=== PATIENT | male | born 1940 | race Caucasian/White ===

== ENCOUNTER → 2017-08-01 | Outpatient (CLI) | payer MEDICARE ==
[~2017-08-01] MED LIST: AMLO10; ASPI325 PO; BENAML20/5 PO; DOCU100 PO; EZET10-20 PO; FERR325 PO; LISI5 PO; METF500 PO; METO50 PO; OXYACE5T PO; ROSU10TA PO; WARF2 PO; WARF6 PO
== END ==
LOC: PLD 11:08 → LAB SHORT 11:08
DX: D48.5 Neoplasm of uncertain behavior of skin (principal)
CPT/HCPCS: 88305

== ENCOUNTER → 2017-09-05 | Outpatient (CLI) | payer MEDICARE | END | disposition home or self-care (01) | LOC: LAB SHORT 07:20 → PLD 07:20 | DX: C44.612 Basal cell carcinoma of skin of right upper limb, including shoulder (principal) | CPT/HCPCS: 88305 ==

== ENCOUNTER 2018-01-14 16:39 | Observation (INO) | payer OTHER, MEDICARE ==
[~2018-01-14] VITALS: Ht 167.6 cm; Wt 66.1 kg
[~2018-01-14 16:39] MED LIST changes: -AMLO10; +AMLO10 PO
[2018-01-14 17:29] LABS: BASOPHILS ABSOLUTE AUTO 0.12 K/mm3 (0.00-0.23); BASOPHILS PERCENT AUTO 1 % (0-2); EOSINOPHILS ABSOLUTE AUTO 0.41 K/mm3 (0.00-0.68); EOSINOPHILS PERCENT AUTO 5 % (0-6); Hematocrit 39.4 % (37.0-53.0); Hemoglobin 13.8 g/dL (13.5-17.5); IMMATURE GRAN ABSOLUTE AUTO 0.04 K/mm3 (0.00-0.10); IMMATURE GRAN PERCENT AUTO 0 % (0-1); LYMPHOCYTES ABSOLUTE AUTO 2.42 K/mm3 (0.84-5.20); LYMPHOCYTES PERCENT AUTO 26 % (21-46); MONOCYTES ABSOLUTE AUTO 1.65 K/mm3 (0.16-1.47); MONOCYTES PERCENT AUTO 18 % (4-13); Mean Corpuscular HGB 34.1 pg (26.0-34.0); Mean Corpuscular Volume 97 fL (80-100); Mean Platelet Volume 8.9 fL (9.1-12.4); NEUTROPHILS ABSOLUTE AUTO 4.52 K/mm3 (1.96-9.15); NEUTROPHILS PERCENT AUTO 49 % (41-73); Platelet Count 257 K/mm3 (150-400); RDW Coefficient Variation 12.3 % (11.7-14.2); RDW Standard Deviation 44.2 fL (35.1-46.3); Red Blood Cell Count 4.05 M/mm3 (4.30-5.90); White Blood Cell Count 9.16 K/mm3 (4.00-11.30)
[2018-01-14 17:55] LABS: Troponin I <0.015 ng/mL (0.000-0.040)
[2018-01-14 18:00] LABS: Alanine Aminotransfer (ALT/SGP 15 U/L (12-78); Albumin, Blood 3.4 g/dL (3.4-5.0); Albumin/Globulin Ratio 0.8 (0.8-1.8); Alk Phos 56 U/L (50-136); Anion Gap 13 mmol/L (6-16); Aspartate Aminotrans (AST/SGOT 20 U/L (12-37); Bilirubin, Total 0.4 mg/dL (0.1-1.0); Blood Urea Nitrogen 11 mg/dL (8-24); Bun/Creatinine Ratio 10.6 (12.0-20.0); CO2, Blood 21 mmol/L (21-32); Calcium, Blood 8.7 mg/dL (8.5-10.1); Chloride, Blood 95 mmol/L (98-108); Creatinine, Blood 1.04 mg/dL (0.60-1.20); Globulin, Blood 4.3 g/dL (2.2-4.0); Glomerular Filtration Rate >60 (60-); Glucose, Blood 99 mg/dL (70-99); Sodium, Blood 129 mmol/L (136-145); Total Protein, Blood 7.7 g/dL (6.4-8.2)
[2018-01-14] MEDS ORDERED: Plavix75 MG PO (18:52)
[2018-01-14 19:48] LABS: Source, Urine Clean Catch
[2018-01-14 19:52] LABS: Bilirubin, Urine Neg (Neg); Blood, Urine Neg (Neg); Glucose Qualitative, Urine Neg (Neg); Ketones, Urine Neg (Neg); Leukocyte Esterase, Urine Neg (Neg); Nitrite, Urine Neg (Neg); Protein, Urine Neg (Neg); Urobilinogen, Urine NORM (Normal)
[2018-01-14 20:02] LABS: Appearance, Urine Clear (Clear)
[2018-01-14 20:03] LABS: Color, Urine Pale Yellow (P-Yellow)
[2018-01-14 21:05] LABS: U Amphetamine Screen Not Detected; U Barbituate Screen Not Detected; U Benzodiazapine Screen Not Detected; U Buprenorphine Screen Not Detected; U Cannabinoids Screen Not Detected; U Cocaine Screen Not Detected; U Methadone Screen Not Detected; U Methamphetamine Screen Not Detected; U Opiates Screen Not Detected; U Oxycodone Screen Not Detected; U Phencyclidine Screen Not Detected; U Propoxyphene Screen Not Detected
[2018-01-14] MEDS ORDERED: CHOL10002 PO (22:28)
[2018-01-15 04:51] LABS: BASOPHILS ABSOLUTE AUTO 0.12 K/mm3 (0.00-0.23); BASOPHILS PERCENT AUTO 2 % (0-2); EOSINOPHILS ABSOLUTE AUTO 0.48 K/mm3 (0.00-0.68); EOSINOPHILS PERCENT AUTO 6 % (0-6); Hemoglobin 12.9 g/dL (13.5-17.5); IMMATURE GRAN ABSOLUTE AUTO 0.02 K/mm3 (0.00-0.10); IMMATURE GRAN PERCENT AUTO 0 % (0-1); LYMPHOCYTES ABSOLUTE AUTO 2.14 K/mm3 (0.84-5.20); LYMPHOCYTES PERCENT AUTO 26 % (21-46); MONOCYTES PERCENT AUTO 20 % (4-13); Mean Corpuscular HGB Conc 33.9 g/dL (31.5-36.5); Mean Corpuscular Volume 97 fL (80-100); NEUTROPHILS ABSOLUTE AUTO 3.78 K/mm3 (1.96-9.15); NEUTROPHILS PERCENT AUTO 46 % (41-73); Platelet Count 245 K/mm3 (150-400); RDW Coefficient Variation 12.5 % (11.7-14.2); RDW Standard Deviation 44.4 fL (35.1-46.3); Red Blood Cell Count 3.91 M/mm3 (4.30-5.90); White Blood Cell Count 8.14 K/mm3 (4.00-11.30)
[2018-01-15 05:10] LABS: Anion Gap 9 mmol/L (6-16); Blood Urea Nitrogen 10 mg/dL (8-24); Bun/Creatinine Ratio 9.7 (12.0-20.0); CO2, Blood 24 mmol/L (21-32); Calcium, Blood 8.4 mg/dL (8.5-10.1); Chloride, Blood 102 mmol/L (98-108); Creatinine, Blood 1.03 mg/dL (0.60-1.20); Glomerular Filtration Rate >60 (60-); Glucose, Blood 91 mg/dL (70-99); Potassium, Blood 4.1 mmol/L (3.5-5.5); Sodium, Blood 135 mmol/L (136-145)
== END 2018-01-15 14:52 | disposition home or self-care (01) ==
LOC: ER 16:39 → MEDS 16:40 → ENPENDDIS 01-15 12:45 → MEDS 01-15 14:52
PROVIDERS: Emergency Medicine; Nurse Practitioner Acute Care
DX: I95.1 Orthostatic hypotension (principal); E87.1 Hypo-osmolality and hyponatremia; J18.8 Other pneumonia, unspecified organism; E78.5 Hyperlipidemia, unspecified; N40.0 Benign prostatic hyperplasia without lower urinary tract symptoms; E11.22 Type 2 diabetes mellitus with diabetic chronic kidney disease; I12.9 Hypertensive chronic kidney disease with stage 1 through stage 4 chronic kidney disease, or unspecified chronic kidney disease; N18.2 Chronic kidney disease, stage 2 (mild); Z79.01 Long term (current) use of anticoagulants; Z85.828 Personal history of other malignant neoplasm of skin; Z86.73 Personal history of transient ischemic attack (TIA), and cerebral infarction without residual deficits; Z79.899 Other long term (current) drug therapy; Z79.02 Long term (current) use of antithrombotics/antiplatelets; Z88.0 Allergy status to penicillin; Z87.891 Personal history of nicotine dependence; Z86.79 Personal history of other diseases of the circulatory system
CPT/HCPCS: 36415; 70450; 71046; 71260; 80048; 80053; 81003; 82947; 83605; 83735; 83880; 84145; 84484; 85025; 85379; 87040; 87449; 90686; 93005; 93010; 93306; 99285-25; G0008; G0378; J7030; Q9967

== ENCOUNTER → 2018-07-08 | Outpatient (CLI) | payer MEDICARE ==
[~2018-07-08] MED LIST changes: +CHOL10002 PO; +Plavix75 MG PO
== END | disposition home or self-care (01) ==
LOC: LAB EV 14:25 → LAB SHORT 14:25
DX: E11.22 Type 2 diabetes mellitus with diabetic chronic kidney disease (principal)
CPT/HCPCS: 82043

== ENCOUNTER 2020-07-28 17:25 | Inpatient (IN) | payer OTHER, MEDICARE ==
[~2020-07-28] VITALS: Ht 167.6 cm; Wt 68.2 kg
[~2020-07-28 17:25] MED LIST changes: -CHOL10002 PO; -LISI5 PO; -Plavix75 MG PO; -ROSU10TA PO
[2020-07-28] MEDS ORDERED: Ventolin/Prove6.7 GM INH (18:05)
[2020-07-28] MEDS ORDERED: ONDA8 PO (18:05)
[2020-07-28] MEDS ORDERED: Crestor40 MG PO (18:06)
[2020-07-28] MEDS ORDERED: Plavix75 MG PO (18:07)
[2020-07-28] MEDS ORDERED: Lisinopril2.5 MG PO (18:07)
[2020-07-28 18:14] LABS: Hematocrit 34.7 % (37.0-53.0); Hemoglobin 12.3 g/dL (13.5-17.5); Mean Corpuscular HGB 34.3 pg (26.0-34.0); Mean Corpuscular HGB Conc 35.4 g/dL (31.5-36.5); Mean Corpuscular Volume 97 fL (80-100); Mean Platelet Volume 10.6 fL (9.1-12.4); RDW Coefficient Variation 11.7 % (11.7-14.2); RDW Standard Deviation 41.5 fL (35.1-46.3); Red Blood Cell Count 3.59 M/mm3 (4.30-5.90)
[2020-07-28 18:33] LABS: White Blood Cell Count 0.76 K/mm3 (4.00-11.30)
[2020-07-28 18:34] LABS: Platelet Count 18 K/mm3 (150-400)
[2020-07-28] MEDS ORDERED: VITAMIN D325 MC3 PO (18:38)
[2020-07-28 18:41] LABS: BAND PERCENT MAN 2 % (0-8); BASOPHILS ABSOLUTE MAN 0.01 K/mm3 (0.00-0.23); BASOPHILS PERCENT MAN 2 % (0-2); EOSINOPHILS ABSOLUTE MAN 0.04 K/mm3 (0.00-0.68); EOSINOPHILS PERCENT MAN 6 % (0-6); LYMPHOCYTES ABSOLUTE MAN 0.51 K/mm3 (0.84-5.20); LYMPHOCYTES PERCENT MAN 68 % (21-46); MONOCYTES PERCENT MAN 14 % (4-13); NEUTROPHILS ABSOLUTE MAN 0.07 K/mm3 (1.96-9.15); SEG NEUTROPHILS PERCENT MAN 8 % (41-73); TOTAL CELLS COUNTED 50
[2020-07-28 18:52] LABS: Albumin, Blood 2.5 g/dL (3.4-5.0); Albumin/Globulin Ratio 0.6 (0.8-1.8); Bilirubin, Total 0.4 mg/dL (0.1-1.0); Bun/Creatinine Ratio 23.7 (12.0-20.0); Calcium, Blood 9.1 mg/dL (8.5-10.1); Creatinine, Blood 1.94 mg/dL (0.60-1.20); Globulin, Blood 4.3 g/dL (2.2-4.0); Potassium, Blood 3.6 mmol/L (3.5-5.5); Total Protein, Blood 6.8 g/dL (6.4-8.2)
[2020-07-28 20:01] LABS: Influenza A, PCR NEGATIVE (NEGATIVE); Influenza B, PCR NEGATIVE (NEGATIVE); Resp Syncytial Virus, PCR NEGATIVE (NEGATIVE); SARS-Cov-2 (COVID-19) PCR, MMC NEGATIVE (NEGATIVE)
[2020-07-29 04:10] LABS: Hematocrit 33.7 % (37.0-53.0); Hemoglobin 11.6 g/dL (13.5-17.5); Mean Corpuscular HGB 33.9 pg (26.0-34.0); Mean Corpuscular HGB Conc 34.4 g/dL (31.5-36.5); Mean Corpuscular Volume 99 fL (80-100); Mean Platelet Volume 11.4 fL (9.1-12.4); RDW Coefficient Variation 11.8 % (11.7-14.2); RDW Standard Deviation 42.8 fL (35.1-46.3); Red Blood Cell Count 3.42 M/mm3 (4.30-5.90)
[2020-07-29 04:24] LABS: Platelet Count 15 K/mm3 (150-400)
[2020-07-29 04:25] LABS: White Blood Cell Count 0.98 K/mm3 (4.00-11.30)
[2020-07-29 04:27] LABS: Bun/Creatinine Ratio 21.8 (12.0-20.0); Calcium, Blood 8.4 mg/dL (8.5-10.1); Creatinine, Blood 1.79 mg/dL (0.60-1.20); Potassium, Blood 3.4 mmol/L (3.5-5.5)
--- NOTE | 2020-07-29 05:04 | NUR ---
SHIFT SUMMARY PT RESTED WELL THROUGH NIGHT AFTER BEING ADMITTED FROM ED. ALERT AND ORIENTED - BUT MAY HAVE SOME INTERMITTENT CONFUSION. ABLE TO MAKE NEEDS KNOWN. SATS >90% ON ROOM AIR - DOES CLEAR THROAT OFTEN, SAYS THAT IS NORMAL FOR HIM. TELE READING NSR. NO C/O CHEST PAIN AT THIS TIME. VOIDS TO URINAL, ADEQUATE UOP. NO BM. NO C/O PAIN. VSS. AFEBRILE UPON ARRIVAL. CALL LIGHT WITHIN REACH, BED IN LOWEST POSITION. WILL CONTINUE TO MONITOR.
[2020-07-29 05:36] LABS: BAND PERCENT MAN 4 % (0-8); BASOPHILS ABSOLUTE MAN 0.03 K/mm3 (0.00-0.23); BASOPHILS PERCENT MAN 4 % (0-2); EOSINOPHILS ABSOLUTE MAN 0.07 K/mm3 (0.00-0.68); EOSINOPHILS PERCENT MAN 8 % (0-6); LYMPHOCYTES ABSOLUTE MAN 0.74 K/mm3 (0.84-5.20); LYMPHOCYTES PERCENT MAN 76 % (21-46); MONOCYTES ABSOLUTE MAN 0.03 K/mm3 (0.16-1.47); MONOCYTES PERCENT MAN 4 % (4-13); NEUTROPHILS ABSOLUTE MAN 0.07 K/mm3 (1.96-9.15); SEG NEUTROPHILS PERCENT MAN 4 % (41-73); TOTAL CELLS COUNTED 25
--- NOTE | 2020-07-29 07:46 | NUR ---
Pt states that his girlfriend was the one who thought that he was having more trouble breathing than usual(pt states he usually has difficulty at baseline, due to pulmonary fibrosis) and wanted him to come to the hospital. Pt has tachypnea (20 breaths /min at rest), clear lung sounds save for the right lower lobe, which is diminished and has fine inspiratory crackles noted, but no use of accessory muscles and he is speaking in full sentences, no supplemental oxygen needed at this time. Sitting up eating breakfast at this time. Denies pain.
--- NOTE | 2020-07-29 10:59 | NUR ---
PT is asking when he can go home. States that he feels like his breathing is back to his baseline, and that it was his girlfriend who thought that he needed to go to the hospital yesterday.
--- NOTE | 2020-07-29 12:13 | NUR ---
Dr. Soria was here, rounding on the patient. Discussed plan of care for he patient, and consultation to Dr. Salvador was called into the corporate trust officer at this time. She stats the oncologist is not in the office, but that she will notify him by text message. Telemetry discontinued per orders.
--- NOTE | 2020-07-29 13:51 | NUR ---
ADMIT: 07/28/20 DISCHARGE: DX: Neutropenia,Febrile CC:kwilcox DANIKA CALL: RESIDENCE: Home CAREGIVER: DMITRY ARMSTRONG (CHILD) DX: HTN, CAD, CKD-stage 2, DM-type 2, PVD, see list DME: None CCM: Referral- 2019 HOME HEALTH: None SUMMARY: 07/28/20 07/29/20- pt was admitted for Fever and increase SOB. Dr. Soria has seen pt and consulted with Oncologist. There is some question of what his baseline is. He is having some confusion. No plan to d/c pt at this time. -jesus
--- NOTE | 2020-07-29 18:01 | NUR ---
summary Uneventful day, the pt has said that he feels much better, not having the breathing difficulties which brought him to the hospital in the first place. He has said that he would like to go home. Low grade fever noted today, asymptomatic hypotension. Appetite is fair, voiding using urinal, and did walk into bathroom once today with stand by assistance. Denies pain. Oncology consultation was called into the office, and I do not see a consultation note but the pt states that Dr. Salvador did come by to see him.
--- NOTE | 2020-07-29 20:45 | NUR ---
ASSUMED CARE PT IS SLEEPING IN ROOM. DENIES PAIN OR SOB. VITALS ARE STABLE AND IS ON ROOM AIR WITH SATS OF 98%. USING URINAL TO VOID AND UP WITH SBA TO BATHROOM. WILL CONTINUE TO MONITOR.
[2020-07-30 03:46] LABS: BASOPHILS ABSOLUTE AUTO 0.02 K/mm3 (0.00-0.23); BASOPHILS PERCENT AUTO 1 % (0-2); Hematocrit 31.7 % (37.0-53.0); Hemoglobin 10.9 g/dL (13.5-17.5); Mean Corpuscular HGB 33.9 pg (26.0-34.0); Mean Corpuscular HGB Conc 34.4 g/dL (31.5-36.5); Mean Corpuscular Volume 98 fL (80-100); RDW Coefficient Variation 11.6 % (11.7-14.2); RDW Standard Deviation 42.5 fL (35.1-46.3); Red Blood Cell Count 3.22 M/mm3 (4.30-5.90); White Blood Cell Count 1.72 K/mm3 (4.00-11.30)
[2020-07-30 03:47] LABS: EOSINOPHILS PERCENT AUTO 6 % (0-6); IMMATURE GRAN PERCENT AUTO 12 % (0-1); LYMPHOCYTES ABSOLUTE AUTO 0.87 K/mm3 (0.84-5.20); LYMPHOCYTES PERCENT AUTO 51 % (21-46); MONOCYTES ABSOLUTE AUTO 0.15 K/mm3 (0.16-1.47); MONOCYTES PERCENT AUTO 9 % (4-13); NEUTROPHILS ABSOLUTE AUTO 0.38 K/mm3 (1.96-9.15); NEUTROPHILS PERCENT AUTO 22 % (41-73)
[2020-07-30 03:49] LABS: Platelet Count 18 K/mm3 (150-400)
[2020-07-30 04:05] LABS: BAND PERCENT MAN 8 % (0-8); BASOPHILS ABSOLUTE MAN 0.03 K/mm3 (0.00-0.23); BASOPHILS PERCENT MAN 2 % (0-2); EOSINOPHILS ABSOLUTE MAN 0.13 K/mm3 (0.00-0.68); EOSINOPHILS PERCENT MAN 8 % (0-6); LYMPHOCYTES ABSOLUTE MAN 0.92 K/mm3 (0.84-5.20); LYMPHOCYTES PERCENT MAN 54 % (21-46); METAMYELOCYTE ABSOLUTE MAN 0.01 K/mm3 (0.00-0.00); METAMYELOCYTE PERCENT MAN 1 % (0-0); MONOCYTES ABSOLUTE MAN 0.13 K/mm3 (0.16-1.47); MONOCYTES PERCENT MAN 8 % (4-13); NEUTROPHILS ABSOLUTE MAN 0.46 K/mm3 (1.96-9.15); SEG NEUTROPHILS PERCENT MAN 19 % (41-73); TOTAL CELLS COUNTED 100
[2020-07-30 04:06] LABS: Albumin, Blood 1.8 g/dL (3.4-5.0); Anion Gap 5 mmol/L (6-16); Blood Urea Nitrogen 33 mg/dL (8-24); Bun/Creatinine Ratio 18.3 (12.0-20.0); CO2, Blood 28 mmol/L (21-32); CPK Creatine Kinase 26 U/L (39-308); Calcium, Blood 8.1 mg/dL (8.5-10.1); Chloride, Blood 105 mmol/L (98-108); Glomerular Filtration Rate 39 (60-); Glucose, Blood 97 mg/dL (70-99); Magnesium, Blood 1.7 mg/dL (1.6-2.4); Phosphorus, Blood 2.3 mg/dL (2.5-4.9); Potassium, Blood 3.2 mmol/L (3.5-5.5); Sodium, Blood 138 mmol/L (136-145)
[2020-07-30 04:07] LABS: Creatine Kinase MB <1.0 ng/mL (0.0-3.6); Creatine Kinase MB Index Unable to Calculate (0.0-4.0)
--- NOTE | 2020-07-30 06:26 | NUR ---
SHIFT SUMMARY PT IS ALERT AND ORIENTED. THERE HAVE BEEN NO CONFUSION NOTED DURING SHIFT. VITALS HAVE BEEN STABLE WITH NO ACUTE CHANGES. PT IS ON ROOM AIR WITH SATS OF >92%. PT SLEP THROUGHT THE NIGHT WITH MINIMAL INTERUPTIONS. PT USES URINAL AT BESIDE WHILE DANGLING AND IS ABLE TO AMBULATE TO BATHROOM WHEN NEEDED. PT DENIES CHEST PAIN OR SOB. CRITICAL LAB VALUE REPORTED IN MORNING LABS OF PLT COUNTOF 18 WHICH ARE TRENDING EXPECTED.
--- NOTE | 2020-07-30 13:14 | NUR ---
SPIRITUAL CARE PT IS VERY QUIET AND APPEARS ALMOST FLAT AND WITHDRAWN IF NOT WANTING TO PARTICIPATE IN CONVERSATION. PT SEEMS TO NEED SOME EMOTIONAL AND SPIRITUAL SUPPORT IN REGARDS TO HIS ILLNESS AND CURRENT HEALTH STATUS. 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 PT PRAYED WITH SPIRITUAL CARE BUT WAS UNINTERESTED IN A FURTHER CONVERSATION AT THIS TIME.
--- NOTE | 2020-07-30 13:39 | NUR ---
Spiritual care note: Called in to provide ministry and prayer to Kamari. He was alone in room and seemed withdrawn-difficult to engage. I spoke softly to him, offereing prayer. He allowed me to pray but then said he was tired. I will remain available.
--- NOTE | 2020-07-30 16:14 | NUR ---
TRANSFER TO MEDICAL FLOOR PT TRANSFERRED TO MEDICAL FLOOR AT APPROXIMATELY 1609 VIA WHEELCHAIR ACCOMPANIED BY SARBJIT CERRATO. REPORT GIVEN TO SHONNA STONE ON MEDICAL FLOOR FOR ROOM 341. PT TRANSFERRED WITH LR WITH KCL ADDED, PERSONAL BELONGINGS AND CHART. VS STABLE, PT ON RA UPON TRANSFER
--- NOTE | 2020-07-30 17:07 | NUR ---
TRANSFER NOTE- PT TRANSFERED TO MEDICAL FLOOR FROM PCU. PER REPORT FROM RESIDENTIAL PROPERTY CONSULTANT PT SEEMS WITHDRAWN HOWEVER SHE SPOKE TO HIS FAMILY AND THE PT HAS ALWAYS BEEN VERY QUIET. THIS IS HIS BASELINE. PT ALERT AND ORIENTED 1P ASSIST TO THE BATHROOM FOR LINES AND TUBES.
--- NOTE | 2020-07-30 18:23 | NUR ---
SHIFT SUMMARY- PT ALERT AND ORIENTED 1P ASSIST TO THE BATHROOM FOR LINES AND TUBES. PT IN BED WITH THE CALL LIGHT IN REACH CALLS APPROPRIATELY. DOOR CLOSED FOR NEUTROPENIC PRECAUTIONS. PLAN IS FOR PT TO DC HOME TOMORROW IF CURRENT TREND CONTINUES.
--- NOTE | 2020-07-30 21:50 | NUR ---
SPOKE TO PHARMACIST ABOUT RUNNING CEFEPIME WITH LR THAT HAS 20KCL. STATED WOULD BE OK TO RUN ABX PIGGYBACK WITH THOSE FLUIDS.
[2020-07-31 01:02] LABS: BASOPHILS ABSOLUTE AUTO 0.05 K/mm3 (0.00-0.23); BASOPHILS PERCENT AUTO 1 % (0-2); Hematocrit 31.8 % (37.0-53.0); Mean Corpuscular HGB 33.7 pg (26.0-34.0); Mean Corpuscular HGB Conc 34.6 g/dL (31.5-36.5); Mean Corpuscular Volume 98 fL (80-100); RDW Coefficient Variation 11.8 % (11.7-14.2); RDW Standard Deviation 42.2 fL (35.1-46.3); Red Blood Cell Count 3.26 M/mm3 (4.30-5.90); White Blood Cell Count 3.46 K/mm3 (4.00-11.30)
[2020-07-31 01:06] LABS: EOSINOPHILS ABSOLUTE AUTO 0.09 K/mm3 (0.00-0.68); EOSINOPHILS PERCENT AUTO 3 % (0-6); IMMATURE GRAN ABSOLUTE AUTO 0.21 K/mm3 (0.00-0.10); IMMATURE GRAN PERCENT AUTO 6 % (0-1); LYMPHOCYTES ABSOLUTE AUTO 1.19 K/mm3 (0.84-5.20); LYMPHOCYTES PERCENT AUTO 34 % (21-46); MONOCYTES ABSOLUTE AUTO 0.31 K/mm3 (0.16-1.47); MONOCYTES PERCENT AUTO 9 % (4-13); NEUTROPHILS ABSOLUTE AUTO 1.61 K/mm3 (1.96-9.15); NEUTROPHILS PERCENT AUTO 47 % (41-73)
[2020-07-31 01:07] LABS: Platelet Count 27 K/mm3 (150-400)
[2020-07-31 01:18] LABS: Albumin, Blood 1.7 g/dL (3.4-5.0); Anion Gap 6 mmol/L (6-16); Blood Urea Nitrogen 27 mg/dL (8-24); Bun/Creatinine Ratio 18.4 (12.0-20.0); CO2, Blood 26 mmol/L (21-32); Calcium, Blood 8.1 mg/dL (8.5-10.1); Chloride, Blood 106 mmol/L (98-108); Creatinine, Blood 1.47 mg/dL (0.60-1.20); Glomerular Filtration Rate 49 (60-); Glucose, Blood 102 mg/dL (70-99); Potassium, Blood 3.3 mmol/L (3.5-5.5); Sodium, Blood 138 mmol/L (136-145)
[2020-07-31 01:39] LABS: BAND PERCENT MAN 8 % (0-8); BASOPHILS PERCENT MAN 0 % (0-2); EOSINOPHILS ABSOLUTE MAN 0.27 K/mm3 (0.00-0.68); EOSINOPHILS PERCENT MAN 8 % (0-6); LYMPHOCYTES ABSOLUTE MAN 1.31 K/mm3 (0.84-5.20); LYMPHOCYTES PERCENT MAN 38 % (21-46); METAMYELOCYTE ABSOLUTE MAN 0.06 K/mm3 (0.00-0.00); METAMYELOCYTE PERCENT MAN 2 % (0-0); MONOCYTES PERCENT MAN 6 % (4-13); MYELOCYTE ABSOLUTE MAN 0.03 K/mm3 (0.00-0.00); MYELOCYTE PERCENT MAN 1 % (0-0); NEUTROPHILS ABSOLUTE MAN 1.55 K/mm3 (1.96-9.15); SEG NEUTROPHILS PERCENT MAN 37 % (41-73); TOTAL CELLS COUNTED 100
--- NOTE | 2020-07-31 04:49 | NUR ---
SHIFT SUMMARY A/O, ABLE TO MAKE NEEDS KNOWN. COOPERATIVE WITH CARE. CALLS AND ANSWERS QUESTIONS APPROPRIATELY. NO C/O PAIN/DISCOMFORT. DOES STATE SOB, NOTABLY TACHYPNEIC; HOWEVER, STATES CONTINUOUS SITUATION FOR HIM HE HAS PULMONARY FIBROSIS. DOES NOT UTILIZE BREATHING TREATMENTS. SPO2 >92% ON RA. NEW 20G IV PLACED TO RFA; CONTINUES TO INFUSE LR /c KCL @ 100 ML/HR. INDEPENDENT WITH URINAL AT BEDSIDE. 1P ASSIST TO BATHROOM IF NEEDED R/T IV POLE/TUBING. NO ACUTE CHANGES NOTED OVERNIGHT. APPEARED TO REST WELL. BED REMAINED IN LOWEST POSITION. CALL LIGHT AND BELONGINGS WITHIN REACH. CONTINUE WITH CURRENT PLAN OF CARE. REPORT TO ONCOMING RN.
--- NOTE | 2020-07-31 07:20 | NUR ---
ASSUMED CARE OF PT- BEDSIDE REPORT COMPLETED WITH NIGHT RN THAI. PT ALERT AND ORIENTED AWAKE AT THE TIME OF SHIFT CHANGE. PER REPORT HE DID NOT SLEEP VERY WELL. IV WAS LEAKING AND BLEEDING IN THE NIGHT AND WAS CHANGED. NEW IV INFUSING AT THIS TIME NO BLEEDING OR LEAKING NOTED WILL CTM. PT SEEMS TO BE IN GOOD SPIRITS AND IS HOPEFULL TO GO HOME TODAY.
[2020-07-31] MEDS ORDERED: LEVFLO500 PO (10:36)
--- NOTE | 2020-07-31 12:11 | NUR ---
DISCHARGE NOTE- PT WAS GIVEN VERBAL AND WRITTEN DISCHARGE INSTRUCTIONS AND ACKNOWLEDGED UNDERSTANDING OF THEM. IV DC'D PRIOR TO DISCHARGE. PT ESCORTED OUT VIA WC BY THE RN NO S&S OF DISTRESS NOTED, NO FURTHER QUESTIONS AT THE TIME OF DISCHARGE.
== END 2020-07-31 11:16 | disposition home or self-care (01) | DRG 808 ==
LOC: ER 17:25 → MEDS 23:26 → PCU 23:26 → MEDS 07-30 16:09
PROVIDERS: Emergency Medicine; Internal Medicine Gastroenterology; ADMIT Internal Medicine
DX: D70.1 Agranulocytosis secondary to cancer chemotherapy (principal); G92 Toxic encephalopathy; N17.9 Acute kidney failure, unspecified; C34.31 Malignant neoplasm of lower lobe, right bronchus or lung; R50.81 Fever presenting with conditions classified elsewhere; T45.1X5A Adverse effect of antineoplastic and immunosuppressive drugs, initial encounter; Z98.890 Other specified postprocedural states; Z20.822 Contact with and (suspected) exposure to COVID-19; Z87.891 Personal history of nicotine dependence; Z88.0 Allergy status to penicillin; Z88.1 Allergy status to other antibiotic agents; Z79.899 Other long term (current) drug therapy; Z79.02 Long term (current) use of antithrombotics/antiplatelets; J84.10 Pulmonary fibrosis, unspecified; N18.2 Chronic kidney disease, stage 2 (mild); I12.9 Hypertensive chronic kidney disease with stage 1 through stage 4 chronic kidney disease, or unspecified chronic kidney disease; E78.00 Pure hypercholesterolemia, unspecified; N40.0 Benign prostatic hyperplasia without lower urinary tract symptoms; I25.10 Atherosclerotic heart disease of native coronary artery without angina pectoris; E11.22 Type 2 diabetes mellitus with diabetic chronic kidney disease; Z96.643 Presence of artificial hip joint, bilateral; D69.59 Other secondary thrombocytopenia; Z86.73 Personal history of transient ischemic attack (TIA), and cerebral infarction without residual deficits
CPT/HCPCS: 0241U; 36415; 71045; 76770; 80048; 80053; 80069; 82550; 82553; 83605; 83735; 84145; 85025; 87040; 93005; 93010; 94640; 94760; 96365; 96366; 96367; 99285-25; A9270; J0692; J0696; J3480; J7030; J7120

== ENCOUNTER 2020-09-14 14:03 | Day surgery (SDC) | payer MEDICARE ==
[2020-09-13 09:39] LABS: Hemoglobin 7.2 g/dL (13.5-17.5); Mean Corpuscular HGB 34.4 pg (26.0-34.0); Mean Corpuscular HGB Conc 32.7 g/dL (31.5-36.5); Mean Corpuscular Volume 105 fL (80-100); RDW Coefficient Variation 14.1 % (11.7-14.2); Red Blood Cell Count 2.09 M/mm3 (4.30-5.90); White Blood Cell Count 6.05 K/mm3 (4.00-11.30)
[2020-09-13 09:43] LABS: Platelet Count 33 K/mm3 (150-400)
[2020-09-13 09:48] LABS: Albumin/Globulin Ratio 0.8 (0.8-1.8); Bilirubin, Total 0.6 mg/dL (0.1-1.0); Bun/Creatinine Ratio 25.8 (12.0-20.0); Calcium, Blood 8.7 mg/dL (8.5-10.1); Creatinine, Blood 1.63 mg/dL (0.60-1.20); Globulin, Blood 3.9 g/dL (2.2-4.0); Potassium, Blood 4.5 mmol/L (3.5-5.5); Total Protein, Blood 6.9 g/dL (6.4-8.2)
[2020-09-13 10:13] LABS: BAND PERCENT MAN 2 % (0-8); BASOPHILS ABSOLUTE MAN 0.12 K/mm3 (0.00-0.23); BASOPHILS PERCENT MAN 2 % (0-2); EOSINOPHILS ABSOLUTE MAN 0.18 K/mm3 (0.00-0.68); EOSINOPHILS PERCENT MAN 3 % (0-6); LYMPHOCYTES ABSOLUTE MAN 2.23 K/mm3 (0.84-5.20); LYMPHOCYTES PERCENT MAN 37 % (21-46); MONOCYTES PERCENT MAN 10 % (4-13); SEG NEUTROPHILS PERCENT MAN 46 % (41-73); TOTAL CELLS COUNTED 100
[~2020-09-14 14:03] MED LIST changes: +Crestor40 MG PO; +LEVFLO500 PO; +Lisinopril2.5 MG PO; +ONDA8 PO; +Plavix75 MG PO; +VITAMIN D325 MC3 PO; +Ventolin/Prove6.7 GM INH
--- NOTE | 2020-09-14 14:45 | NUR ---
PT WITH FINE INSPIRATORY CRACKLES SCATTERED T/O BOTH LUNG BRADSHAW PRE BLOOD TRANSFUSION.
== END 2020-09-14 16:30 | disposition home or self-care (01) ==
LOC: ATC 14:03 → EDSTATUS 08-23 14:25 → LAB FUT 08-23 14:25
PROVIDERS: Internal Medicine Hematology & Oncology
DX: C34.31 Malignant neoplasm of lower lobe, right bronchus or lung (principal); D64.81 Anemia due to antineoplastic chemotherapy; I12.9 Hypertensive chronic kidney disease with stage 1 through stage 4 chronic kidney disease, or unspecified chronic kidney disease; E11.22 Type 2 diabetes mellitus with diabetic chronic kidney disease; N18.2 Chronic kidney disease, stage 2 (mild); I25.10 Atherosclerotic heart disease of native coronary artery without angina pectoris; Z88.0 Allergy status to penicillin; Z87.891 Personal history of nicotine dependence
CPT/HCPCS: 36415; 36430; 80053; 85025; 86850; 86900; 86901; 86923; J7050; P9016

== ENCOUNTER 2020-12-14 08:00 | Day surgery (SDC) | payer MEDICARE ==
[2020-12-13 08:59] LABS: Hematocrit 29.5 % (37.0-53.0); Hemoglobin 9.8 g/dL (13.5-17.5); LYMPHOCYTES ABSOLUTE AUTO 3.23 K/mm3 (0.84-5.20); LYMPHOCYTES PERCENT AUTO 37 % (21-46); MONOCYTES ABSOLUTE AUTO 0.86 K/mm3 (0.16-1.47); MONOCYTES PERCENT AUTO 10 % (4-13); Mean Corpuscular HGB 36.6 pg (26.0-34.0); Mean Corpuscular HGB Conc 33.2 g/dL (31.5-36.5); Mean Corpuscular Volume 110 fL (80-100); NRBC ABSOLUTE 0.02 K/mm3 (0.00-0.02); NRBC Auto 0.2 /100 WBC (0.0-0.2); RDW Coefficient Variation 12.1 % (11.7-14.2); RDW Standard Deviation 48.5 fL (35.1-46.3); Red Blood Cell Count 2.68 M/mm3 (4.30-5.90); White Blood Cell Count 8.68 K/mm3 (4.00-11.30)
[2020-12-13 09:03] LABS: BASOPHILS ABSOLUTE AUTO 0.02 K/mm3 (0.00-0.23); BASOPHILS PERCENT AUTO 0 % (0-2); EOSINOPHILS ABSOLUTE AUTO 0.11 K/mm3 (0.00-0.68); EOSINOPHILS PERCENT AUTO 1 % (0-6); IMMATURE GRAN ABSOLUTE AUTO 0.13 K/mm3 (0.00-0.10); IMMATURE GRAN PERCENT AUTO 2 % (0-1); Mean Platelet Volume 13.4 fL (9.1-12.4); NEUTROPHILS ABSOLUTE AUTO 4.33 K/mm3 (1.96-9.15); NEUTROPHILS PERCENT AUTO 50 % (41-73)
[2020-12-13 09:07] LABS: Platelet Count 9 K/mm3 (150-400)
[2020-12-13 09:10] LABS: Albumin, Blood 3.2 g/dL (3.4-5.0); Albumin/Globulin Ratio 0.8 (0.8-1.8); Bilirubin, Total 0.6 mg/dL (0.1-1.0); Bun/Creatinine Ratio 14.5 (12.0-20.0); Calcium, Blood 8.5 mg/dL (8.5-10.1); Creatinine, Blood 1.52 mg/dL (0.60-1.20); Globulin, Blood 3.8 g/dL (2.2-4.0); Potassium, Blood 3.8 mmol/L (3.5-5.5)
[2020-12-13 09:19] LABS: BAND PERCENT MAN 1 % (0-8); BASOPHILS ABSOLUTE MAN 0.08 K/mm3 (0.00-0.23); BASOPHILS PERCENT MAN 1 % (0-2); EOSINOPHILS ABSOLUTE MAN 0.17 K/mm3 (0.00-0.68); EOSINOPHILS PERCENT MAN 2 % (0-6); LYMPHOCYTES ABSOLUTE MAN 3.64 K/mm3 (0.84-5.20); LYMPHOCYTES PERCENT MAN 42 % (21-46); MONOCYTES ABSOLUTE MAN 0.52 K/mm3 (0.16-1.47); MONOCYTES PERCENT MAN 6 % (4-13); NEUTROPHILS ABSOLUTE MAN 4.25 K/mm3 (1.96-9.15); SEG NEUTROPHILS PERCENT MAN 48 % (41-73); TOTAL CELLS COUNTED 100
--- NOTE | 2020-12-14 11:44 | NUR ---
PT TO [facility] FOR PLATELET TRANSFUSION. BP LOW, PT IS ASYMPTOMATIC. WILL CONTINUE TO MONITOR. LUNG SOUNDS WITH CRACKLES IN BASES. PT SOB WITH EXERTION. STATES HE FEELS HIS BREATHING IS AT BASELINE. O2 SAT 94% ON RA.
== END 2020-12-14 23:59 | disposition home or self-care (01) ==
LOC: ATC 08:00 → LAB FUT 11-22 11:20 → EDSTATUS 11-22 11:20
PROVIDERS: Internal Medicine Hematology & Oncology
DX: C34.31 Malignant neoplasm of lower lobe, right bronchus or lung (principal); D69.59 Other secondary thrombocytopenia; I12.9 Hypertensive chronic kidney disease with stage 1 through stage 4 chronic kidney disease, or unspecified chronic kidney disease; N18.2 Chronic kidney disease, stage 2 (mild); E11.22 Type 2 diabetes mellitus with diabetic chronic kidney disease; I25.10 Atherosclerotic heart disease of native coronary artery without angina pectoris; Z79.899 Other long term (current) drug therapy; Z88.0 Allergy status to penicillin; Z87.891 Personal history of nicotine dependence
CPT/HCPCS: 36415; 36430; 80053; 85025; 86900; 86901; J7050; P9035